=== PATIENT | male | born 1970 ===

== ENCOUNTER 2021-10-31 11:57 | Emergency (ER) | payer MEDICAID ==
[~2021-10-31] VITALS: Ht 180.3 cm; Wt 112.7 kg
[2021-10-31 12:02] VITALS: BP 136/93
== END 2021-10-31 14:50 | disposition left against medical advice (07) ==
LOC: ER 11:58
DX: U07.1 COVID-19 (principal); R05.9 Cough, unspecified; Z53.21 Procedure and treatment not carried out due to patient leaving prior to being seen by health care provider

== ENCOUNTER 2022-07-21 09:54 | Emergency (ER) | payer MEDICAID ==
[~2022-07-21] VITALS: Ht 180.3 cm; Wt 102.3 kg
[2022-07-21 10:27] VITALS: BP 153/84
[2022-07-21] MEDS ORDERED: dexamethasone sod phosphate 10mg/ml inj PO STA (11:06)
[2022-07-21] MEDS ORDERED: albuterol 2.5 MG/3 ML nebule NEB ONE (11:10)
[2022-07-21] MEDS ORDERED: PRED20TA PO (11:37)
[2022-07-21] MEDS ORDERED: ALBU8HFA PO (11:37)
== END 2022-07-21 11:47 | disposition home or self-care (01) ==
LOC: ER 09:55
DX: J20.9 Acute bronchitis, unspecified (principal); I10 Essential (primary) hypertension; F17.200 Nicotine dependence, unspecified, uncomplicated; Z88.5 Allergy status to narcotic agent; Z79.899 Other long term (current) drug therapy
CPT/HCPCS: 71046; 94640; 99283; J1100